=== PATIENT | female | born 1985 | race Caucasian/White ===

== ENCOUNTER 2017-11-12 12:22 | Emergency (ER) | payer SELFPAY ==
[~2017-11-12] VITALS: Ht 175.3 cm; Wt 68.2 kg
[2017-11-12 12:23] VITALS: BP 135/84; PULSE 84; RESP 16; TEMP 98.2; O2SAT 98
[2017-11-12 13:46] LABS: AUTOMATED NEUTROPHIL # 8.9 TH/MM3 (1.8-7.7); BASOPHIL # 0.1 TH/MM3 (0-0.2); BASOPHIL % 0.8 % (0.0-2.0); EOSINOPHIL # 0.3 TH/MM3 (0-0.4); EOSINOPHIL % 2.5 % (0.0-4.0); HEMATOCRIT 40.3 % (35.0-46.0); HEMOGLOBIN 13.3 GM/DL (11.6-15.3); LYMPH % 21.6 % (9.0-44.0); LYMPHOCYTE # 2.8 TH/MM3 (1.0-4.8); MEAN CELL VOLUME 78.8 FL (80.0-100.0); MEAN CORPUSCULAR HGB CONC 32.9 % (32.0-36.0); MEAN PLATELET VOLUME 7.2 FL (7.0-11.0); MONO % 7.3 % (0.0-8.0); NEUT % 67.8 % (16.0-70.0); PLATELET COUNT 360 TH/MM3 (150-450); RED BLOOD COUNT 5.11 MIL/MM3 (4.00-5.30); RED CELL DISTRIBUTION WIDTH 14.6 % (11.6-17.2); WHITE BLOOD COUNT 13.1 TH/MM3 (4.0-11.0)
[2017-11-12 13:53] LABS: INTERNATIONAL NORMALIZED RATIO 1.2 RATIO
[2017-11-12 14:02] LABS: ALBUMIN 3.4 GM/DL (3.4-5.0); AST (GOT) 34 U/L (15-37); BICARBONATE 30.3 MEQ/L (21.0-32.0); BLOOD UREA NITROGEN 7 MG/DL (7-18); CALCIUM 8.8 MG/DL (8.5-10.1); CHLORIDE 99 MEQ/L (98-107); CREATININE 0.76 MG/DL (0.50-1.00); GLOMERULAR FILTRATION RATE 88 ML/MIN (>89); GLUCOSE,RANDOM 88 MG/DL (74-106); SODIUM (NA) 134 MEQ/L (136-145)
[2017-11-12 14:09] LABS: ALKALINE PHOSPHATASE 131 U/L (45-117); ALT (GPT) 23 U/L (10-53); TOTAL BILIRUBIN ADULT 0.4 MG/DL (0.2-1.0); TOTAL PROTEIN 8.3 GM/DL (6.4-8.2)
--- NOTE | 2017-11-12 14:11 | PD ---
HPI Chief Complaint: Skin Problem Time Seen by Provider: 13:59 Travel History International Travel<30 days: No Contact w/Intl Traveler<30days: No Traveled to known affect area: No History of Present Illness HPI 32-year-old female with history of IV drug abuse presents emergency department for the second time today for evaluation of left hand and wrist abscess with associated cellulitis. Patient left AGAINST MEDICAL ADVICE earlier this morning to go use. She reports being told that she would need to be admitted with IV antibiotics. Patient reports reduction in ability to flex the left wrist. Reports significant pain. Denies fever or chills. Denies alterations in sensation. She is up-to-date on tetanus vaccination. No other symptoms to report. [facility] Past Medical History Medical History: Denies Significant Hx ?: Not Social History Alcohol Use: Yes Tobacco Use: Yes Substance Use: Yes Allergies-Medications (Allergen,Severity, Reaction): Coded Allergies: No Known Allergies (Unverified , 11/12/17) Review of Systems Except as stated in HPI: all other systems reviewed are Neg Physical Exam Narrative GENERAL: Well-nourished female patient, appears to be under the influence of admitted heroin as she is having a difficult time staying awake during my assessment. SKIN: Focused skin assessment warm/dry. There is an indurated area in the left dorsal wrist which measures about 3 cm in diameter. It is fluctuant but there is no pointing or drainage. There is a zone of inflammation around it but no lymphangitis. There is another area of induration on the left dorsal wrist which measures 1-1/2 cm in diameter. It is also fluctuant with no pointing or drainage. Erythema extends from around this area to the dorsal hand. 18 cm x 12 cm. Skin appears taut on the dorsal left hand. Full scattered lesions on the bilateral upper extremities. HEAD: Atraumatic. Normocephalic. EYES: 2 mm equal and round. No scleral icterus. No injection or drainage. ENT: No nasal bleeding or discharge. Mucous membranes pink and moist. NECK: Trachea midline. No JVD. CARDIOVASCULAR: Regular rate and rhythm. No murmur appreciated. RESPIRATORY: No accessory muscle use. Clear to auscultation. Breath sounds equal bilaterally. GASTROINTESTINAL: Abdomen soft, non-tender, nondistended. Hepatic and splenic margins not palpable. MUSCULOSKELETAL: No obvious deformities. No clubbing. No cyanosis. Patient is unable to make a complete fist with the left hand reporting significant pain. She is unable to fully flex the left wrist as well. Distal pulses are palpable. Cap refill is within normal limits. Normal speech. NEUROLOGICAL: Awake and alert. No obvious cranial nerve deficits. Data Data Last Documented VS Vital Signs Date Time Temp Pulse Resp B/P (MAP) Pulse Ox O2 Delivery O2 Flow Rate FiO2 11/12/17 12:23 98.2 84 16 135/84 (101) 98 Orders Orders Complete Blood Count With Diff (11/12/17 12:45) Comprehensive Metabolic Panel (11/12/17 12:45) Prothrombin Time / Inr (Pt) (11/12/17 12:45) Act Partial Throm Time (Ptt) (11/12/17 12:45) Lactic Acid Sepsis Protocol (11/12/17 12:45) Wound Culture And Gram Stain (11/12/17 14:15) Iv Access Insert/Monitor (11/12/17 14:31) Blood Culture (11/12/17 14:31) Vancomycin Inj (Vancomycin Inj) (11/12/17 14:45) Piperacil-Tazo 4.5 Gm Premix (Zosyn 4.5 (11/12/17 14:45) Sodium Chlor 0.9% 1000 Ml Inj (Ns 1000 M (11/12/17 14:45) Hand, Complete ([id number]) (11/12/17 ) Ketorolac Inj (Toradol Inj) (11/12/17 14:45) Labs Laboratory Tests Test 11/12/17 13:20 White Blood Count 13.1 TH/MM3 Red Blood Count 5.11 MIL/MM3 Hemoglobin 13.3 GM/DL Hematocrit 40.3 % Mean Corpuscular Volume 78.8 FL Mean Corpuscular Hemoglobin 26.0 PG Mean Corpuscular Hemoglobin Concent 32.9 % Red Cell Distribution Width 14.6 % Platelet Count 360 TH/MM3 Mean Platelet Volume 7.2 FL Neutrophils (%) (Auto) 67.8 % Lymphocytes (%) (Auto) 21.6 % Monocytes (%) (Auto) 7.3 % Eosinophils (%) (Auto) 2.5 % Basophils (%) (Auto) 0.8 % Neutrophils # (Auto) 8.9 TH/MM3 Lymphocytes # (Auto) 2.8 TH/MM3 Monocytes # (Auto) 1.0 TH/MM3 Eosinophils # (Auto) 0.3 TH/MM3 Basophils # (Auto) 0.1 TH/MM3 CBC Comment DIFF FINAL Differential Comment Prothrombin Time 12.0 SEC Prothromb Time International Ratio 1.2 RATIO Activated Partial Thromboplast Time 28.9 SEC Blood Urea Nitrogen 7 MG/DL Creatinine 0.76 MG/DL Random Glucose 88 MG/DL Total Protein 8.3 GM/DL Albumin 3.4 GM/DL Calcium Level 8.8 MG/DL Alkaline Phosphatase 131 U/L Aspartate Amino Transf (AST/SGOT) 34 U/L Alanine Aminotransferase (ALT/SGPT) 23 U/L Total Bilirubin 0.4 MG/DL Sodium Level 134 MEQ/L Potassium Level 3.7 MEQ/L Chloride Level 99 MEQ/L Carbon Dioxide Level 30.3 MEQ/L Anion Gap 5 MEQ/L Estimat Glomerular Filtration Rate 88 ML/MIN Lactic Acid Level 0.8 mmol/L MDM Medical Decision Making Medical Screen Exam Complete: Yes Emergency Medical Condition: Yes Medical Record Reviewed: Yes Differential Diagnosis Cellulitis versus abscess versus septic joint versus tenosynovitis Narrative Course 32-year-old female presents to emergency department for evaluation of left wrist abscess with associated cellulitis secondary to IV drug use. Patient does have 2 areas of abscess on the dorsal aspect of the left wrist. ID is complete. Patient has limited range of motion of the left wrist and unable to make a complete fist with the left hand. X-ray imaging reports no bony abnormality. Laboratory Tests Test 11/12/17 13:20 White Blood Count 13.1 TH/MM3 Red Blood Count 5.11 MIL/MM3 Hemoglobin 13.3 GM/DL Hematocrit 40.3 % Mean Corpuscular Volume 78.8 FL Mean Corpuscular Hemoglobin 26.0 PG Mean Corpuscular Hemoglobin Concent 32.9 % Red Cell Distribution Width 14.6 % Platelet Count 360 TH/MM3 Mean Platelet Volume 7.2 FL Neutrophils (%) (Auto) 67.8 % Lymphocytes (%) (Auto) 21.6 % Monocytes (%) (Auto) 7.3 % Eosinophils (%) (Auto) 2.5 % Basophils (%) (Auto) 0.8 % Neutrophils # (Auto) 8.9 TH/MM3 Lymphocytes # (Auto) 2.8 TH/MM3 Monocytes # (Auto) 1.0 TH/MM3 Eosinophils # (Auto) 0.3 TH/MM3 Basophils # (Auto) 0.1 TH/MM3 CBC Comment DIFF FINAL Differential Comment Prothrombin Time 12.0 SEC Prothromb Time International Ratio 1.2 RATIO Activated Partial Thromboplast Time 28.9 SEC Blood Urea Nitrogen 7 MG/DL Creatinine 0.76 MG/DL Random Glucose 88 MG/DL Total Protein 8.3 GM/DL Albumin 3.4 GM/DL Calcium Level 8.8 MG/DL Alkaline Phosphatase 131 U/L Aspartate Amino Transf (AST/SGOT) 34 U/L Alanine Aminotransferase (ALT/SGPT) 23 U/L Total Bilirubin 0.4 MG/DL Sodium Level 134 MEQ/L Potassium Level 3.7 MEQ/L Chloride Level 99 MEQ/L Carbon Dioxide Level 30.3 MEQ/L Anion Gap 5 MEQ/L Estimat Glomerular Filtration Rate 88 ML/MIN Lactic Acid Level 0.8 mmol/L Blood cultures are drawn. Patient is given IV Zosyn and vancomycin. I discussed the patient with [facility] resident team for admission. They'll place a consult hand surgery. Plan is discussed with the patient. She is in agreement with plan of care at this time. Procedures Procedure Narrative INCISION AND DRAINAGE OF ABSCESS: The area was prepped and was sterilely draped. Topical apical chloride was used to anesthetize the area. The area was properly anesthetized. A [id number] was used to make a 1-cm incision across the area of the abscess. Cultures were obtained. The abscess was drained an irrigated with normal saline. Quarter inch iodoform packing was placed in the wound. Sterile dressing applied. Patient advised to have packing removed in two days. INCISION AND DRAINAGE OF ABSCESS: The area was prepped and was sterilely draped. Topical apical chloride was used to anesthetize the area. The area was properly anesthetized. A [id number] was used to make a 1-cm incision across the area of the abscess. Cultures were obtained. The abscess was drained an irrigated with normal saline. Diagnosis Primary Impression: Abscess of hand, left Additional Impression: Cellulitis and abscess of hand Admitting Information Admitting Physician Requests: Admit Condition: Stable Alicia Yi BILLIE Nov 12, 2017 14:11
[2017-11-12] MEDS ORDERED: PIPERACIL-TAZO 4.5 GM PREMIX 100 ML IV ONE (14:45)
[2017-11-12] MEDS ORDERED: KETOROLAC TROMETHAMINE 30 MG/ML (IVP) VIAL IV PUSH ONE (14:45)
[2017-11-12] MEDS ORDERED: SODIUM CHLOR 0.9% 1000 ML INJ 1,000 ML IV ONE (14:45)
[2017-11-12] MEDS ORDERED: VANCOMYCIN INJ 1,000 MG in SODIUM CHLOR 0.9% 250 ML INJ 250 ML IV ONE (14:45)
--- NOTE | 2017-11-12 15:34 | RADRPT ---
EXAM DATE/TIME: 11/12/2017 14:54 [facility] COMPARISON: No previous studies available for comparison. INDICATIONS : Pain and swelling in hand. Pain in 2nd proximal IPJ MEDICAL HISTORY : None. SURGICAL HISTORY : None. ENCOUNTER: Initial ACUITY: 1 day PAIN SCORE: 7/10 LOCATION: Left Hand FINDINGS: Three view examination of the left hand demonstrates no soft tissue swelling, dislocation, or fractur e. The carpal bones appear intact. The interphalangeal and metacarpophalangeal joints are intact. Bony mineralization is normal. CONCLUSION: No fracture. Tod Frey MD on November 12, 2017 at 15:26 Board Certified Radiologist. This report was verified electronically.
--- NOTE | 2017-11-12 16:16 | HHI.HP ---
[facility] Service Family Medicine Primary Care Physician No Primary Care Physician Admission Diagnosis L WRIST CELLULITIS/ ABSCESS/ IVDA ? SEPTIC JOINT Diagnoses: International Travel<30 Days: No Contact w/Intl Traveler<30days: No Known Affected Area: No History of Present Illness 32 y/o F, hx of IVDU, comes in with persistent L hand cellulitis. Patient was admitted last night for the left hand and wrist abscess and cellulitis and was started on IV antibiotics. The patient presumably left AMA this morning so that she could continue her substance abuse and return to the ED this afternoon. She was reporting an inability to move her left hand with the same range of motion that she can move her right hand. She was also in significant pain in the left hand. She states that the pain and limited range of motion in her left hand has significantly improved since she has gotten IV antibiotics and the abscesses have been drained and packed. The patient wants to go to an inpatient rehab facility and is very set on getting to [facility] where she has a bed today. The rest of the H&P was unable to be obtained because the patient decided to leave AMA. (Irena Healy MD R2) Past Family Social History Allergies: Coded Allergies: No Known Allergies (Unverified , 11/12/17) Physical Exam Vital Signs Vital Signs Date Time Temp Pulse Resp B/P (MAP) Pulse Ox O2 Delivery O2 Flow Rate FiO2 11/12/17 12:23 98.2 84 16 135/84 (101) 98 Physical Exam GENERAL: This is a well-nourished, well-developed patient, in no apparent distress. SKIN: No rashes, ecchymoses or lesions. Cool and dry. HEAD: Atraumatic. Normocephalic. No temporal or scalp tenderness. EYES: Pupils equal round and reactive. Extraocular motions intact. No scleral icterus. No injection or drainage. ENT: Nose without bleeding, purulent drainage or septal hematoma. Throat without erythema, tonsillar hypertrophy or exudate. Uvula midline. Airway patent. NECK: Trachea midline. No JVD or lymphadenopathy. Supple, nontender, no meningeal signs. MUSCULOSKELETAL: Left hand erythema from below the wrist os the dorsum of the hand, with significant swelling and 2 abscesses that are packed. Range of motion is intact in the left hand and is equal to range of motion in the right hand. There is no active drainage from the abscesses. Laboratory Laboratory Tests Test 11/12/17 13:20 White Blood Count 13.1 Red Blood Count 5.11 Hemoglobin 13.3 Hematocrit 40.3 Mean Corpuscular Volume 78.8 Mean Corpuscular Hemoglobin 26.0 Mean Corpuscular Hemoglobin Concent 32.9 Red Cell Distribution Width 14.6 Platelet Count 360 Mean Platelet Volume 7.2 Neutrophils (%) (Auto) 67.8 Lymphocytes (%) (Auto) 21.6 Monocytes (%) (Auto) 7.3 Eosinophils (%) (Auto) 2.5 Basophils (%) (Auto) 0.8 Neutrophils # (Auto) 8.9 Lymphocytes # (Auto) 2.8 Monocytes # (Auto) 1.0 Eosinophils # (Auto) 0.3 Basophils # (Auto) 0.1 CBC Comment DIFF FINAL Differential Comment Prothrombin Time 12.0 Prothromb Time International Ratio 1.2 Activated Partial Thromboplast Time 28.9 Blood Urea Nitrogen 7 Creatinine 0.76 Random Glucose 88 Total Protein 8.3 Albumin 3.4 Calcium Level 8.8 Alkaline Phosphatase 131 Aspartate Amino Transf (AST/SGOT) 34 Alanine Aminotransferase (ALT/SGPT) 23 Total Bilirubin 0.4 Sodium Level 134 Potassium Level 3.7 Chloride Level 99 Carbon Dioxide Level 30.3 Anion Gap 5 Estimat Glomerular Filtration Rate 88 Lactic Acid Level 0.8 Date/Time Source Procedure Growth Status 11/12/17 14:43 Blood Peripheral Aerobic Blood Culture Pending Received 11/12/17 14:43 Blood Peripheral Anaerobic Blood Culture Pending Received 11/12/17 14:25 Wound Wrist Gram Stain - Final Resulted 11/12/17 14:25 Wound Wrist Wound Culture Pending Resulted (Irena Healy MD R2) Result Diagram: 11/12/17 1320 11/12/17 1320 Caprini VTE Risk Assessment Caprini VTE Risk Assessment: No/Low Risk (score <= 1) Caprini Risk Assessment Model Point Value = 1 Point Value = 2 Point Value = 3 Point Value = 5 Age 41-60 Minor surgery BMI > 25 kg/m2 Swollen legs Varicose veins or History of unexplained or recurrent spontaneous Oral contraceptives or hormone replacement Sepsis (< 1 month) Serious lung disease, including pneumonia (< 1 month) Abnormal pulmonary function Acute myocardial infarction Congestive heart failure (< 1 month) History of inflammatory bowel disease Medical patient at bed rest Age 61-74 Arthroscopic surgery Major open surgery (> 45 min) Laparoscopic surgery (> 45 min) Malignancy Confined to bed (> 72 hours) Immobilizing plaster cast Central venous access Age >= 75 History of VTE Family history of VTE Factor V Leiden Prothrombin [id number] Lupus anticoagulant Anticardiolipin antibodies Elevated serum homocysteine Heparin-induced thrombocytopenia Other congenital or acquired thrombophilia Stroke (< 1 month) Elective arthroplasty Hip, pelvis, or leg fracture Acute spinal cord injury (< 1 month) Prophylaxis Regimen Total Risk Factor Score Risk Level Prophylaxis Regimen 0-1 Low Early ambulation 2 Moderate Order ONE of the following: *Sequential Compression Device (SCD) *Heparin 5000 units SQ BID 3-4 Higher Order ONE of the following medications: *Heparin 5000 units SQ TID *Enoxaparin/Lovenox 40 mg SQ daily (WT < 150 kg, CrCl > 30 mL/min) *Enoxaparin/Lovenox 30 mg SQ daily (WT < 150 kg, CrCl > 10-29 mL/min) *Enoxaparin/Lovenox 30 mg SQ BID (WT < 150 kg, CrCl > 30 mL/min) AND/OR *Sequential Compression Device (SCD) 5 or more Highest Order ONE of the following medications: *Heparin 5000 units SQ TID (Preferred with Epidurals) *Enoxaparin/Lovenox 40 mg SQ daily (WT < 150 kg, CrCl > 30 mL/min) *Enoxaparin/Lovenox 30 mg SQ daily (WT < 150 kg, CrCl > 10-29 mL/min) *Enoxaparin/Lovenox 30 mg SQ BID (WT < 150 kg, CrCl > 30 mL/min) AND *Sequential Compression Device (SCD) (Irena Healy MD R2) Assessment and Plan Attending Attestation Patient seen, examined, and discussed with Dr. Healy, as well as case management coordinator from psychiatry. Prior to completion of H&P, pt decided to leave Against Medical Advice. It was discussed with her the potential risks to leaving AMA, including worsening infection, osteomyelitis, tenosynovitis, etc. Patient Meena Garcia has decided to leave the hospital against medical advice. This patient has the capacity to refuse care and understands the risks of leaving, including permanent disability and/or , and has had an opportunity to ask questions about her condition. The patient has been informed that she may return for care at any time, and follow up has been advised. (Maryse Mcclelland MD) Physician Certification 2 Midnight Certification Type: Admission for Inpatient Services Order for Inpatient Services The services are ordered in accordance with Medicare regulations or non- Medicare payer requirements, as applicable. In the case of services not specified as inpatient-only, they are appropriately provided as inpatient services in accordance with the 2-midnight benchmark. Estimated LOS (days): 2 days is the estimated time the patient will need to remain in the hospital, assuming treatment plan goals are met and no additional complications. Post-Hospital Plan: Inpatient Rehab (Irena Healy MD R2) Irena Healy MD R2 Nov 12, 2017 16:16 Maryse Mcclelland MD Nov 13, 2017 12:11
== END 2017-11-12 19:10 | disposition left against medical advice (07) ==
LOC: NEPE 12:22 → UNDOADMIN 15:57 → NEDH 15:57
DX: L02.512 Cutaneous abscess of left hand (principal); B95.62 Methicillin resistant Staphylococcus aureus infection as the cause of diseases classified elsewhere; B95.1 Streptococcus, group B, as the cause of diseases classified elsewhere; M79.642 Pain in left hand; F19.90 Other psychoactive substance use, unspecified, uncomplicated
CPT/HCPCS: 10061; 73130; 80053; 83605; 85025; 85610; 85730; 86403; 87040; 87070; 87077; 87186; 96365; 96375; 99285; J1885; J2543; J3370; J7030; J7050

== ENCOUNTER 2017-11-15 19:20 | Emergency (ER) | payer SELFPAY ==
[~2017-11-15] VITALS: Ht 175.3 cm; Wt 68.5 kg
[2017-11-15 19:22] VITALS: BP 127/59; PULSE 75; RESP 16; TEMP 98.2; O2SAT 98
[2017-11-15] MEDS ORDERED: BACT800T5 PO (21:12)
[2017-11-15] MEDS ORDERED: DOXY100C PO (21:13)
--- NOTE | 2017-11-15 21:16 | PD ---
HPI Chief Complaint: Skin Problem Time Seen by Provider: 21:04 Travel History International Travel<30 days: No Contact w/Intl Traveler<30days: No Traveled to known affect area: No History of Present Illness HPI patient is an ivda that was seen and admitted 2 days ago for cellulitis. patient left [facility] stating she was going to lose her [facility] bed....left [facility] on no abx....now here for wound check and care prior to [facility] have her ivda addressed. patient denies further drainage, no fever, no cough/joint pain/cp/ murmur PFSH Past Medical History Medical History: Denies Significant Hx ?: Not : 2 Para: 0 : 2 Past Surgical History Eye Surgery: Yes (left eye ) Gynecologic Surgery: Yes (IUD PLACED) Oral Surgery: Yes (root canal) Social History Alcohol Use: Yes Tobacco Use: Yes (1PPD) Substance Use: Yes Allergies-Medications (Allergen,Severity, Reaction): Coded Allergies: No Known Allergies (Unverified , 11/15/17) Reported Meds & Prescriptions Reported Meds & Active Scripts Active Doxycycline Hyclate 100 Mg Cap 100 Mg PO BID Bactrim DS (Sulfamethoxazole-Trimethoprim) 800-160 Mg Tab 1 Tab PO BID Review of Systems General / Constitutional: No: Fever Eyes: No: Visual changes HENT: No: Headaches Cardiovascular: No: Chest Pain or Discomfort Respiratory: No: Shortness of Breath Gastrointestinal: No: Abdominal Pain Genitourinary: No: Dysuria Musculoskeletal: No: Pain Skin: Positive Lesions Neurologic: No: Weakness Psychiatric: No: Depression Endocrine: No: Polydipsia Hematologic/Lymphatic: No: Easy Bruising Physical Exam Narrative GENERAL: SKIN: Warm and dry. HEAD: Atraumatic. Normocephalic. EYES: Pupils equal and round. No scleral icterus. No injection or drainage. ENT: No nasal bleeding or discharge. Mucous membranes pink and moist. NECK: Trachea midline. No JVD. CARDIOVASCULAR: Regular rate and rhythm. RESPIRATORY: No accessory muscle use. Clear to auscultation. Breath sounds equal bilaterally. GASTROINTESTINAL: Abdomen soft, non-tender, nondistended. Hepatic and splenic margins not palpable. MUSCULOSKELETAL: Extremities without clubbing, cyanosis, or edema. No obvious deformities. dorsum of left hand has cellulitic changes without fluctuance, and has a couple of incisions noted likely from 15 blade, and not packed but the cavity is too small to have been packed at present. NEUROLOGICAL: Awake and alert. No obvious cranial nerve deficits. Motor grossly within normal limits. Five out of 5 muscle strength in the arms and legs. Normal speech. PSYCHIATRIC: Appropriate mood and affect; insight and judgment normal. Data Data Last Documented VS Orders Orders Clindamycin Inj (Cleocin Inj) (11/15/17 21:30) Sulfamet-Trimeth Ds 800-160 Mg (Bactrim (11/15/17 21:30) Ed Discharge Order (11/15/17 22:01) [facility] Medical Decision Making Medical Screen Exam Complete: Yes Emergency Medical Condition: Yes Medical Record Reviewed: Yes Differential Diagnosis cellulitis v abscess v lymphangitis Narrative Course patient again today states that she has to get to [facility] by tomorrow so refuses to stay tonight for care either....therefore, i am forced to at least provide partial treatment while in ED, patient has the capacity to make decisions even if they are poor ones. patient understands risk include infection progression, septic shock, , amputation as well as valvular disease due to ivda. patient voices that she is trying to clean up her life and that is why she has to leave to go to [facility]....when confronted that this is the same story she used 2 days ago, she states that this time she really has a bed available for her. patient was advised that I as well as other medical personnel continue to attempt to take care of her but she continues to interfere in her own care and as such she assumes FULL responsibility for any complications such as sepsis, amputation, permanent disability or . patient agrees and voiced understanding Diagnosis Primary Impression: left dorsum hand celllulitis without abscess Patient Instructions: Cellulitis (ED), General Instructions Scripts Doxycycline Hyclate (Doxycycline Hyclate) 100 Mg Cap 100 MG PO BID for Infection, #20 CAP 0 Refills Prov: Serg Arango MD 11/15/17 Sulfamethoxazole-Trimethoprim (Bactrim DS) 800-160 Mg Tab 1 TAB PO BID for Infection, #20 TAB 0 Refills Prov: Serg Arango MD 11/15/17 Disposition: 07 AGAINST MEDICAL ADVICE Condition: Fair Serg Arango MD Nov 15, 2017 21:16
[2017-11-15] MEDS ORDERED: SULFAMETHOXAZOLE-TRIMETHOPRIM DS 800-160 MG TAB PO ONE (21:30)
[2017-11-15] MEDS ORDERED: CLINDAMYCIN PHOS 300 MG/2 ML VIAL IM ONE (21:30)
== END 2017-11-15 22:35 | disposition left against medical advice (07) ==
LOC: NEPD 19:20
DX: L03.114 Cellulitis of left upper limb (principal); F17.200 Nicotine dependence, unspecified, uncomplicated; Z79.899 Other long term (current) drug therapy; Z53.29 Procedure and treatment not carried out because of patient's decision for other reasons
CPT/HCPCS: 96372